=== PATIENT | female | born 1950 | race Caucasian/White ===

== ENCOUNTER → 2017-11-24 09:24 | Outpatient (CLI) | payer MEDICARE, OTHER, SELFPAY ==
--- NOTE | 2017-11-24 09:32 | XR_ITS ---
XR chest 2V HISTORY: Injury with pain ITS.REASON: LT RIB PAIN ORDERING PHYSICIAN: Coty Cortez PATIENT AGE: 67 years COMPARISON: 09/30/2013 FINDINGS: Normal heart size. No evidence of CHF. Calcified nodes are present in the mediastinum. There are chronic changes in the left lung base laterally. There is also patchy density in the left lower lobe posteriorly which may be due to an area of atelectasis or infiltrate. The remaining lungs are clear. Degenerative changes are present in thoracic spine. IMPRESSION: Chronic changes in the left lung base with patchy density in the left lower lobe posteriorly which could be due to an area of atelectasis or infiltrate. Recommend follow-up to confirm stability as developing nodule is also a consideration.
--- NOTE | 2017-11-24 09:32 | XR_ITS ---
XR ribs LT 2V HISTORY: ITS.REASON: LT RIB PAIN ORDERING PHYSICIAN: Coty Cortez PATIENT AGE: 67 years Comparison: None FINDINGS: Multiple views of the Left ribs were obtained. No fracture or dislocation. No lytic or blastic change. The lower ribs image suggest a nodule in the left lower lobe at 1.[address] may confirm There is thoracic lumbar scoliosis convex right which is increased compared to 07/11/2014 with degenerative changes in the lower thoracic and upper lumbar spine. IMPRESSION: 1. No acute finding of the ribs. 2. Thoracic lumbar scoliosis convex right with degenerative changes in the lower thoracic and upper lumbar spine. 3. Possible left lower lobe nodule which may be confirmed with CT
== END ==
PROVIDERS: PCP Nurse Practitioner; Visit Provider Nurse Practitioner
DX: R07.81 Pleurodynia (principal)
CPT/HCPCS: 71046; 71100

== ENCOUNTER → 2018-02-11 08:24 | Outpatient (CLI) | payer MEDICARE, OTHER, SELFPAY ==
--- NOTE | 2018-02-11 08:27 | CI_ITS ---
Cerebrovascular Exam Indications: 780.4 Dizziness and giddiness. IMPRESSIONS 1. The bilateral vertebral arteries are patent with normal antegrade flow. 2. Study suggests less than 20% stenosis involving the right internal carotid artery and the left internal carotid artery. 3. Tortuous carotid arteries seen bilaterally. History: Risk factors: Current tobacco use. Carotid duplex study. Complete study and Doppler flow study including spectral analysis, color and barnhart scale imaging. Location: Vascular laboratory. Patient status: Outpatient. Tables: Arterial flow: + +--------+--------+ Location V sys V ed + +--------+--------+ Right CCA - proximal 86.4cm/s 24.4cm/s + +--------+--------+ Right CCA - distal 88.8cm/s 30.6cm/s + +--------+--------+ Right ECA 91.1cm/s -------- + +--------+--------+ Right ICA - proximal 113cm/s 44.8cm/s + +--------+--------+ Right ICA - mid 101cm/s 41.6cm/s + +--------+--------+ Right ICA - distal 112cm/s 42.4cm/s + +--------+--------+ Right vertebral 39.3cm/s -------- + +--------+--------+ Left CCA - proximal 104cm/s 29.1cm/s + +--------+--------+ Left CCA - distal 84.9cm/s 29.9cm/s + +--------+--------+ Left ECA 69.1cm/s -------- + +--------+--------+ Left ICA - proximal 92.7cm/s 34.6cm/s + +--------+--------+ Left ICA - mid 103cm/s 39.3cm/s + +--------+--------+ Left ICA - distal 92.2cm/s 39.9cm/s + +--------+--------+ Left vertebral 55cm/s -------- + +--------+--------+ Velocity ratios: + + + + + + Right, V sys Right, V ed Left, V sys Left, V ed + + + + + + Max ICA/dist CCA 1.27 1.46 1.21 1.33 + + + + + + (Report amended ) Electronically signed by: Luis Antonio Barnes [id number]
== END ==
PROVIDERS: PCP Nurse Practitioner Family; Visit Provider Nurse Practitioner Family
DX: R42 Dizziness and giddiness (principal)
CPT/HCPCS: 93880

== ENCOUNTER → 2019-09-02 09:17 | Outpatient (CLI) | payer MEDICARE, OTHER, SELFPAY ==
--- NOTE | 2019-09-02 09:30 | CT_ITS ---
PROCEDURE: CT HEAD/BRAIN WO CON CLINICAL INDICATION: DIZZINESS, PARESTHESIA OF SKIN COMPARISON: No exams were available for comparison TECHNIQUE: Axial images obtained. All CT scans at the facility use one or more dose reduction, viz: automated exposure control, ma/kV adjustment per patient size (including targeted exams where dose is matched to indication, i.e. head), or iterative reconstruction technique. FINDINGS: No midline shift, mass effect, intracranial hemorrhage, hydrocephalus, or extra-axial fluid collection is evident. Nonspecific periventricular and subcortical areas of decreased attenuation are present and may represent ischemic gliotic changes from microvascular disease. Small areas of encephalomalacia versus prominent gyri noted in the temporal lobes on both sides the calvarium has an unremarkable appearance. No mastoid effusion. No sinus air-fluid level. IMPRESSION: 1. No acute finding. 2. Suspect ischemic gliotic changes from microvascular disease with small areas of encephalomalacia versus partial volume averaging artifact from prominent gyri within the temporal lobes Dictated by: Luis Antonio Barnes MD 09/02/2019 10:06 Electronically signed by Luis Antonio Barnes MD in [facility] 09/02/2019 10:06
[2019-09-02 09:33] LABS: Basophils # 0.1 K/mm3 (0-0.2); Basophils % 0.5 % (0.1-2.0); Eosinophils # 0.2 K/mm3 (0.0-0.4); Eosinophils % 1.8 % (0.1-12.0); Hematocrit 39.9 % (37.0-47.0); Hemoglobin 13.2 g/dL (12.2-16.2); Lymphocytes # 1.9 K/mm3 (0.7-4.5); Lymphocytes % 18.5 % (10-50); Mean Corpuscular HGB Conc 33.1 g/dL (31.8-35.4); Mean Corpuscular Hemoglobin 29.9 pg (27.0-31.2); Mean Corpuscular Volume 90.4 fl (81-99); Mean Platelet Volume 8.2 fl (7.4-10.4); Monocytes # 0.5 K/mm3 (0.1-1.0); Monocytes % 4.7 % (1.7-9.3); Neutrophils # 7.5 K/mm3 (1.8-7.8); Neutrophils % 74.5 % (37.0-80.0); Platelet Count 318 K/mm3 (142-424); Red Blood Count 4.41 M/mm3 (4.20-5.40); Red Cell Distribution Width 13.8 % (11.5-17.5)
[2019-09-02 09:43] LABS: Chloride 105 mmol/L (98-107); Potassium 4.4 mmoL/L (3.5-5.1); Sodium 142 mmol/L (136-145)
[2019-09-02 09:45] LABS: Blood Urea Nitrogen 14 mg/dl (7-17); Estimated Glomerular Filt Rate 71 ml/min (>60); GFR (African American) 86 ML/MIN (>60)
[2019-09-02 09:46] LABS: Alanine Aminotransferase 18 U/L (12-78); Albumin Level 3.6 g/dl (3.5-5.0); Albumin/Globulin Ratio 1.3 (1.1-1.8); Alkaline Phosphatase 75 U/L (38-126); Anion Gap 10.4 mEq/L (5-15); Aspartate Amino Transferase 24 U/L (14-36); Bilirubin,Total 0.3 mg/dl (0.2-1.3); Carbon Dioxide 31 mmol/L (22.0-30.0); Globulin 2.7 g/dL (1.3-3.2); Total Protein,Serum 6.3 g/dl (6.3-8.2)
[2019-09-02 09:52] LABS: C-Reactive Protein 23.1 mg/L (0-4); Calcium 8.8 mg/dl (8.4-10.2)
[2019-09-02 09:54] LABS: D-Dimer 302 ng/mL (0-400)
[2019-09-02 10:17] LABS: Thyroid Stimulating Hormone 1.38 uIU/mL (0.465-4.68)
[2019-09-02 10:29] LABS: Glucose 86 mg/dl (74-100)
== END ==
PROVIDERS: Visit Provider Nurse Practitioner Family
DX: R51 Headache (principal); R42 Dizziness and giddiness; R20.0 Anesthesia of skin; R20.2 Paresthesia of skin
CPT/HCPCS: 36415; 70450; 80053; 84443; 85025; 85378; 86140

== ENCOUNTER → 2019-09-24 10:50 | Outpatient (CLI) | payer MEDICARE, OTHER, SELFPAY ==
--- NOTE | 2019-09-24 10:52 | CA_ITS ---
APPROVED REPORT [employer] Worker: Joanne Angel RVT Laterality: Bilateral Study Quality: Good Indications: Dizziness and Vertigo Risk Factors Hyperlipidemia Smoking Doppler Spectral Velocity Analysis ECA (R) 69.50/15.10 cm/s ECA (L) 53.00/13.90 cm/s dICA (R) 65.90/27.40 cm/s dICA (L) 79.10/41.00 cm/s Vince (R) 85.70/40.60 cm/s Vince (L) 56.50/31.50 cm/s pICA (R) 53.60/29.40 cm/s pICA (L) 55.30/22.00 cm/s dCCA (R) 79.30/23.20 cm/s dCCA (L) 58.40/21.80 cm/s pCCA (R) 83.60/27.10 cm/s pCCA (L) 78.90/26.10 cm/s Vert (R) 33.60/11.80 cm/s Vert (L) 39.20/11.30 cm/s ICA/CCA 1.08 ICA/CCA 1.35 Findings Study suggests less than 20% stenosis of the right internal cartoid artery unchanged from the 02/11/18. Study suggests less than 20% stenosis of the left internal cartoid artery unchanged from the 02/11/18 study. Antegrade flow seen bilateral vertebral arteries. Left thyroid nodule seen. Conclusion Study suggests less than 20% stenosis of the right internal cartoid artery unchanged from the 02/11/18. Study suggests less than 20% stenosis of the left internal cartoid artery unchanged from the 02/11/18 study. Antegrade flow seen bilateral vertebral arteries. Left thyroid nodule seen. Electronically signed by : Luis Antonio Barnes MD 09/24/2019 16:38:34
== END ==
PROVIDERS: PCP Nurse Practitioner Family; Visit Provider Nurse Practitioner Family
DX: R42 Dizziness and giddiness (principal)
CPT/HCPCS: 93880

== ENCOUNTER → 2020-01-17 14:57 | Outpatient (CLI) | payer MEDICARE, OTHER, SELFPAY ==
--- NOTE | 2020-01-17 15:15 | XR_ITS ---
PROCEDURE: XR CHEST PORTABLE CLINICAL HISTORY: COVID OUTPATIENT Shortness of breath with cough COMPARISON: CR CXR CHEST(2 VIEWS-NOT PORTABLE) from 09/30/2013 DX CXR2V XR chest 2V from 11/24/2017 FINDINGS: Mild cardiomegaly without failure. No lobar consolidation or collapse. There is some increased density in the left lower lung zone which may be related to soft tissue attenuation. There is blunting of the CP angles on both sides suggesting small effusions. Postsurgical changes right shoulder.. Thoracolumbar scoliosis convex right. IMPRESSION: Cardiomegaly with small bilateral effusions Dictated by: Luis Antonio Barnes MD 01/17/2020 16:45 Luis Antonio Barnes MD in [facility] 01/17/2020 16:45
[2020-01-19 13:15] LABS: Covid-19 Nasal PCR Sendout Lex Not Detected
== END ==
PROVIDERS: PCP Nurse Practitioner Family; Visit Provider Nurse Practitioner Family
DX: Z03.818 Encounter for observation for suspected exposure to other biological agents ruled out (principal)
CPT/HCPCS: 71045; U0004

== ENCOUNTER → 2020-02-01 15:23 | Outpatient (CLI) | payer MEDICARE, OTHER, SELFPAY ==
[2020-02-01 16:32] LABS: Basophils # 0.1 K/mm3 (0-0.2); Basophils % 0.4 % (0.1-2.0); Eosinophils # 0.1 K/mm3 (0.0-0.4); Eosinophils % 0.4 % (0.1-12.0); Hematocrit 45.3 % (37.0-47.0); Lymphocytes # 1.8 K/mm3 (0.7-4.5); Lymphocytes % 12.4 % (10-50); Mean Corpuscular HGB Conc 30.9 g/dL (31.8-35.4); Mean Corpuscular Volume 96.9 fl (81-99); Mean Platelet Volume 8.2 fl (7.4-10.4); Monocytes # 0.8 K/mm3 (0.1-1.0); Monocytes % 5.5 % (1.7-9.3); Neutrophils # 11.9 K/mm3 (1.8-7.8); Neutrophils % 81.3 % (37.0-80.0); Platelet Count 398 K/mm3 (142-424); Red Blood Count 4.68 M/mm3 (4.20-5.40); White Blood Count 14.7 K/mm3 (4.8-10.8)
[2020-02-01 16:44] LABS: D-Dimer 0.92 ug/mL (0.15-8.0)
[2020-02-01 17:31] LABS: Chloride 102 mmol/L (98-107); Potassium 4.3 mmoL/L (3.5-5.1); Sodium 139 mmol/L (136-145)
[2020-02-01 17:34] LABS: Alanine Aminotransferase 34 U/L (12-78); Albumin Level 3.6 g/dl (3.5-5.0); Albumin/Globulin Ratio 1.2 (1.1-1.8); Alkaline Phosphatase 87 U/L (38-126); Anion Gap 10.3 mEq/L (5-15); Aspartate Amino Transferase 28 U/L (14-36); Bilirubin,Total 0.9 mg/dl (0.2-1.3); Blood Urea Nitrogen 21 mg/dl (7-17); Carbon Dioxide 31 mmol/L (22.0-30.0); Estimated Glomerular Filt Rate 83 ml/min (>60); GFR (African American) 100 ML/MIN (>60); Globulin 2.9 g/dL (1.3-3.2); Total Protein,Serum 6.5 g/dl (6.3-8.2)
[2020-02-01 17:35] LABS: Calcium 9.2 mg/dl (8.4-10.2); Glucose 98 mg/dl (74-100)
[2020-02-01 17:40] LABS: C-Reactive Protein 31.9 mg/L (0-4)
[2020-02-01 18:06] LABS: Thyroid Stimulating Hormone 1.12 uIU/mL (0.465-4.68)
[2020-02-02 11:02] LABS: NT Pro Brain Natriuretic Pep. 7460 pg/mL (0-125)
== END ==
PROVIDERS: Visit Provider Nurse Practitioner Family
DX: R42 Dizziness and giddiness (principal); R51.9 Headache, unspecified; R20.2 Paresthesia of skin; R20.0 Anesthesia of skin; R79.89 Other specified abnormal findings of blood chemistry; R06.02 Shortness of breath
CPT/HCPCS: 36415; 80053; 83880; 84443; 85025; 85378; 86140

== ENCOUNTER → 2021-11-28 10:41 | Outpatient (CLI) | payer MEDICARE, OTHER, SELFPAY ==
--- NOTE | 2021-11-28 10:45 | CT_ITS ---
FINAL REPORT CLINICAL HISTORY: DIZZINESS, RECURRENT HEADACHE x 1 year COMPARISON: 09/02/2019 FINDINGS: Axial images of the head were obtained without contrast. Coronal reformatted images were also obtained. This study was performed with techniques to keep radiation doses as low as reasonably achievable (ALARA). Individualized dose reduction techniques using automated exposure control or adjustment of mA and/or kV according to the patient''s size were employed. There is generalized age-appropriate atrophy. Periventricular low-attenuation areas are seen consistent with mild chronic ischemic changes. There is no evidence of intracranial hemorrhage or mass. There is no evidence of acute infarct. There is no evidence of shift of the midline structures. There is a retention cyst or polyp in the right maxillary sinus. No skull abnormality is seen on the bone window images. IMPRESSION: Atrophy and mild periventricular chronic ischemic changes. A retention cyst or polyp in the right maxillary sinus. No acute intracranial abnormality identified. Reviewed, Interpreted and Dictated by Jonatan Graham III, MD Transcribed by Belkis Kerns Authenticated and [facility]
== END ==
PROVIDERS: PCP Nurse Practitioner Family; Visit Provider Nurse Practitioner Family
DX: R42 Dizziness and giddiness (principal); R51.9 Headache, unspecified
CPT/HCPCS: 70450